=== PATIENT | female | born 1995 | race Hispanic/Latino ===

== ENCOUNTER 2017-09-29 08:53 | Inpatient (IN) | payer OTHER ==
--- OUTSIDE RECORDS SUMMARY | 2017-09-29 08:55 | XMS REPORT ---
:1995 Author Organization eClinicalWorks Care Team Providers Name Role Phone Rios Fink Provider Role Unavailable Allergies, Adverse Reactions, Alerts Substance Reaction Event Type N.K.D.A. Info Not Available Non Drug Allergy Problems Problem Type Condition Code Onset Dates Condition Status Problem Encounter for supervision of normal Z34.03 Active first in third trimester Problem Encounter for supervision of normal Z34.02 Active first in second trimester Problem Abnormality of vulva during O34.73 Active in third trimester Assessment Encounter for supervision of normal Z34.03 Active first in third trimester Assessment Abnormality of vulva during O34.73 Active in third trimester Medications Medication Code Code Instructions Start End Status Dosage System Date Date Valacyclovir HCl [facility] 32636608953 1 GM Orally August 31September Active 1 tablet twice a day 2017 Results No Known Results Summary Purpose eClinicalWorks Submission
--- OUTSIDE RECORDS SUMMARY | 2017-09-29 08:55 | XMS REPORT ---
:1995 Author Organization eClinicalWorks Care Team Providers Name Role Phone Rios Fink Provider Role Unavailable Allergies No Known Allergies Problems Problem Type Condition Code Onset Dates Condition Status Assessment Other viral diseases complicating O98.513 Active , third trimester Problem Other viral diseases complicating O98.513 Active , third trimester Problem Abnormality of vulva during O34.73 Active in third trimester Problem Herpesviral infection, unspecified B00.9 Active Assessment Encounter for supervision of normal Z34.03 Active first in third trimester Assessment Herpesviral infection, unspecified B00.9 Active Problem Encounter for supervision of normal Z34.03 Active first in third trimester Problem Encounter for supervision of normal Z34.02 Active first in second trimester Medications Medication Code Code Instructions Start End Status Dosage System Date Date Valacyclovir HCl [facility] 09492605430 500 MG Orally September 07October Active 1 tablet twice a day 2017 Valacyclovir HCl [place] 21499461668 1 GM Orally August 31September Active 1 tablet twice a day 2017 Results No Known Results Immunizations Vaccine Administration Date TDAP > 7 Years-Adacel September 07, 2017 Summary Purpose eClinicalWorks Submission
--- OUTSIDE RECORDS SUMMARY | 2017-09-29 08:55 | XMS REPORT ---
:1995 Author Organization e[employer]Works Care Team Providers Name Role Phone AleksRios Provider Role Unavailable Allergies No Known Allergies Problems Problem Type Condition Code Onset Dates Condition Status Assessment Other viral diseases complicating O98.513 Active , third trimester Assessment Encounter for supervision of normal Z34.03 Active first in third trimester Assessment Herpesviral infection, unspecified B00.9 Active Assessment Acute vaginitis N76.0 Active Assessment Other specified bacterial agents as B96.89 Active the cause of diseases classified elsewhere Problem Acute vaginitis N76.0 Active Problem Other viral diseases complicating O98.513 Active , third trimester Problem Other specified bacterial agents as B96.89 Active the cause of diseases classified elsewhere Problem Encounter for supervision of normal Z34.03 Active first in third trimester Problem Encounter for supervision of normal Z34.02 Active first in second trimester Problem Herpesviral infection, unspecified B00.9 Active Problem Abnormality of vulva during O34.73 Active in third trimester Medications Medication Code Code Instructions Start End Status Dosage System Date Date Valacyclovir HCl [facility] 19199740341 1 GM Orally August 31September Active 1 tablet twice a day 2017 Valacyclovir HCl ND 18265713019 500 MG Orally September 07October Active 1 tablet twice a day 2017 Flagyl [facility] 99945519265 500 MG Orally Active 1 tablet every 12 hours Results No Known Results Summary Purpose eClinicalWorks Submission
--- OUTSIDE RECORDS SUMMARY | 2017-09-29 08:55 | XMS REPORT ---
:1995 Author Organization eClinicalWorks Care Team Providers Name Role Phone Sofijuan jRios Provider Role Unavailable Allergies No Known Allergies [...] Start End Status Dosage System Date Date Flagyl [facility] 03536289552 500 MG Orally Active 1 tablet every 12 hours Valacyclovir HCl [place] 89120793079 1 GM Orally August 31September Active 1 tablet twice a day 2017 Valacyclovir HCl ND 76574163553 500 MG Orally September 07October Active 1 tablet twice a day 2017 Results No Known Results Summary Purpose eClinicalWorks Submission
--- OUTSIDE RECORDS SUMMARY | 2017-09-29 08:55 | XMS REPORT ---
:1995 Author Organization eClinicalWorks Care Team Providers Name Role Phone Jenniferyannickjuan jRios Provider Role Unavailable Allergies No Known [...] Status Dosage System Date Date Valacyclovir HCl [facility] 77553471954 1 GM Orally August 31September Active 1 tablet twice a day 2017 Valacyclovir HCl ND 29002769191 500 MG Orally September 07October Active 1 tablet twice a day 2017 Flagyl [facility] 49860471252 500 MG Orally Active 1 tablet every 12 hours Results No Known Results Summary Purpose eClinicalWorks Submission
--- OUTSIDE RECORDS SUMMARY | 2017-09-29 08:55 | XMS REPORT ---
:1995 Author Organization eClinicalWorks Care Team Providers Name Role Phone Rios Fink Provider Role Unavailable Allergies No Known Allergies Problems Problem Type Condition Code Onset Dates Condition Status Problem Encounter for supervision of normal Z34.02 Active first in second trimester Assessment Encounter for supervision of normal Z34.03 Active first in third trimester Problem Encounter for supervision of normal Z34.03 Active first in third trimester Medications No Known Medications Results No Known Results Summary Purpose eClinicalWorks Submission
[2017-09-29] MEDS ORDERED: hydrOXYzine HCl 25 MG TAB PO ONE (09:22)
[2017-09-29] MEDS ORDERED: hydrOXYzine HCl 25 MG TAB ONE (09:38)
[2017-09-29] MEDS ORDERED: PROMETHAZINE 25 MG/ML VIAL IV PRN ×2 (11:08)
[2017-09-29] MEDS ORDERED: Ringers Lactate 1,000 ML IV PRN (11:08)
[2017-09-29] MEDS ORDERED: BUTORPHANOL 1 MG/ML INJ IV PRN (11:08)
[2017-09-29 11:28] LABS: RPR Titer ND
[2017-09-29] MEDS ORDERED: PENICILLIN G POT 5 MU/100 ML BAG IV ONE (11:30)
[2017-09-29 11:32] LABS: Urine Appearance CLOUDY; Urine Bilirubin NEGATIVE (NEG); Urine Blood 3+ (NEG); Urine Color YELLOW; Urine Glucose NEGATIVE (NEG); Urine Protein NEGATIVE (NEG); Urine Urobilinogen 0.2 mg/dL (0.2-1.0)
[2017-09-29 11:35] LABS: Absolute Lymphocytes (CBC) 1.8 K/uL (0.7-4.9); Absolute Monocytes 0.6 K/uL (0.1-1.3); Absolute Neutrophil 5.3 K/uL (1.8-8.0); Basophils % 0.7 % (0-1.3); Eosinophils % 2.1 % (0-4.4); Hematocrit 35.8 % (36.0-45.0); Lymphocytes % 22.4 % (15.3-44.8); MCH 25.5 pg (27.0-35.0); MCV 78.1 fL (80-100); MPV 9.4 fL (7.6-11.3); Monocytes % 7.5 % (3.3-12.3); RBC Red Blood Cell Count 4.58 M/uL (3.86-4.86)
[2017-09-29 11:38] LABS: Urine Microscopic Reflex ORDER UMIC
[2017-09-29 11:44] LABS: Urine Bacteria 20-50 /HPF (<20); Urine Culture Reflex Order REFLEXED; Urine Mucus 2+ /HPF (NONE SEEN)
[2017-09-29] MEDS ORDERED: OXYTOCIN/LR 20 UNIT/1,000 ML BAG IV SCH (12:00)
[2017-09-29] MEDS ORDERED: Ringers Lactate 1,000 ML IV SCH (12:00)
[2017-09-29 12:10] VITALS: BMI 24.3
[2017-09-29 13:10] LABS: Anisocytosis 2+; Blood Morphology Comment NOTED (NOT SEEN); Platelet Estimate INCR; Urine White Blood Cell Casts OK
[2017-09-29] MEDS ORDERED: PENICILLIN 2.5 MU in NA CHLORIDE 0.9% 100 ML IV SCH (15:30)
[2017-09-29] MEDS ORDERED: CARBOPROST TROME 250 MCG/ML IM ONE (16:28)
[2017-09-29] MEDS ORDERED: METHYLERGONOVINE 0.2MG/ML AMP IM ONE (16:28)
[2017-09-29] MEDS ORDERED: LIDOCAINE 2% INJ, 20 mL 20 ML ONE (16:29)
[2017-09-29] MEDS ORDERED: BISACODYL 10 MG RECTAL SUPP RECT PRN (18:17)
[2017-09-29] MEDS ORDERED: METHYLERGONOVINE 0.2 MG TAB PO PRN (18:17)
[2017-09-29] MEDS ORDERED: ONDANSETRON 4 MG (ODT) TAB PO PRN (18:17)
[2017-09-29] MEDS ORDERED: ACETAMINOPHEN 500 MG TAB PO PRN (18:17)
[2017-09-29] MEDS ORDERED: IBUPROFEN 200 MG TAB PO PRN (18:17)
[2017-09-29] MEDS ORDERED: Oxycodone HCl/Acetaminophen 1 TAB TAB PO PRN (18:17)
[2017-09-29] MEDS ORDERED: DOCUSATE NA/SENNA CONC 1 TAB PO PRN (18:17)
[2017-09-29] MEDS: Oxycodone HCl/Acetaminophen 1 TAB TAB PO PRN (22:00)
--- NOTE | 2017-09-29 23:03 | P.OBGYNHP ---
Certification for Inpatient Patient admitted to: Inpatient With expected LOS: <2 Midnights Patient will require the following post-hospital care: None Practitioner: I am a practitioner with admitting privileges, knowledge of patient current condition, hospital course, and medical plan of care. Services: Services provided to patient in accordance with Admission requirements found in Title 42 Section 412.3 of the Code of Federal Regulations Patient History Date of Service: 09/29/17 Reason for admission: LABOR History of Present Illness: Patient is a 22 y/o at 39 weeks 3 days gestation who presents in labor. She was seen in the office yesterday and was found to be dilated a fingertip and today she is 2cm dilated and 70% effaced. She is cristal regularly. She denies vaginal bleeding. No leakage of fluid. 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 She has been on valtrex for suppression starting at 35 weeks. See record for further details Allergies No Known Allergies Allergy (Verified 09/05/17 04:39) Home Medications: Codeine/APAP [Tylenol W/Codeine #3 tab] 1 tab PO Q6HP PRN #25 tab 09/30/17 - Past Medical/Surgical History Diabetic: No - Social History Smoking Status: Never smoker Alcohol use: No CD- Drugs: No Caffeine use: Yes Place of Residence: Home Review of Systems 10-point ROS is otherwise unremarkable Physical Examination - Vital Signs Temperature: 98.3 F Blood Pressure: 127/81 Pulse: 100 Respirations: 16 - General General: Alert, Oriented x3, Moderate distress HEENT: Atraumatic Neck: Supple Respiratory: Normal air movement Cardiovascular: No edema, Normal pulses Breasts: Normal configuration, Normal contours, Symmetrical Integumentary: No rashes, No breakdown Neurological: Normal gait, Normal speech - Female Pelvic External genitalia: Normal Vagina: Normal, [place], Moist Cervix: Dilation (2 cm), Effacement (70%), station (-2) Uterus: Gravid Adnexa: Unable to evaluate - Obstetrics heart rate tracing: Category 2 Contractions: Frequency (Every 3-5 min) Amniotic membrane: AROM (Clear fluid) Laboratory Data (last 24 hrs) 09/29/17 10:58: WBC 7.9, Hgb 11.7 L, Hct 35.8 L, Plt Count 344 Assessment and Plan - Plan Patient is a 22 y/o at 39 weeks 3 days gestation who presents in labor. Rupture of membranes has been performed. Patient has been given penicillin since she is GBS positive. Patient was offered epidural for pain management however she declines at this time. Will begin Pitocin for labor augmentation. Continuous / maternal monitoring will be performed. Anticipate vaginal . Discharge Plan: Home Plan to discharge in: 48 Hours - Advance Directives Does patient have a Living Will: No Does patient have a Durable POA for Healthcare: No
--- NOTE | 2017-09-29 23:04 | P.OP ---
Date of Service: 09/29/17 Findings and Operative Technique Patient delivered a viable male in cephalic presentation on 09/29/17 at 07: 48 AM. There was nuchal cord x1 which was reduced manually. was delivered over a midline episiotomy. Nose and mouth were suctioned with a suction bulb. Cord was clamped and cut. Infant was placed on mother's abdomen for skin to skin bonding. Placenta was then subsequently delivered gentle traction and was noted to be intact. Attention was then turned to the episiotomy which was repaired with a 2 Vicryl in usual fashion. EBL was 300 cc. Infant's weight was found to be 7 lb 3 oz. Apgars were 9 and 9. Stage I of labor was 625 min. Stage II was 18 min. Both mom and baby are doing well.
[2017-09-29 23:06] LABS: RPR (Rapid Plasma Reagin) NON-REACT (NON-REACT)
[2017-09-30 05:02] LABS: Absolute Lymphocytes (CBC) 1.9 K/uL (0.7-4.9); Absolute Neutrophil 8.8 K/uL (1.8-8.0); Basophils % 0.5 % (0-1.3); Eosinophils % 0.4 % (0-4.4); Hematocrit 28.3 % (36.0-45.0); Lymphocytes % 15.8 % (15.3-44.8); MCH 25.3 pg (27.0-35.0); MCV 78.7 fL (80-100); Monocytes % 8.9 % (3.3-12.3); RBC Red Blood Cell Count 3.59 M/uL (3.86-4.86)
[2017-09-30] MEDS ORDERED: IBUPROFEN 400 MG TAB PO PRN (09:48)
[2017-09-30] MEDS ORDERED: PRENATAL VITAMIN PO ONE (12:57)
[2017-09-30] MEDS ORDERED: FERROUS SULFATE 325 MG TAB PO ONE (12:57)
[2017-09-30] MEDS: Oxycodone HCl/Acetaminophen 1 TAB TAB PO PRN (17:31)
[2017-09-30] MEDS ORDERED: FERROUS SULFATE 325 MG TAB PO SCH (21:00)
[2017-10-01] MEDS ORDERED: PRENATAL VITAMIN PO SCH (09:00)
[2017-10-01 18:21] LABS: HBsAG Nonreactive (Nonreactive)
[2017-10-14 11:27] VITALS: BP 127/81; TEMP 98.3
--- NOTE | 2017-10-14 14:39 | P.DS ---
Admission Date: 09/29/17 Discharge Date: 09/30/17 Disposition: ROUTINE DISCHARGE Discharge Condition: GOOD Reason for Admission: LABOR Brief History of Present Illness: Patient is a 22 y/o at 39 weeks 3 days gestation who presents in labor. She was seen in the office yesterday and was found to be dilated a fingertip and today she is 2cm dilated and 70% effaced. She is cristal regularly. She denies vaginal bleeding. No leakage of fluid. 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 She has been on valtrex for suppression starting at 35 weeks. See record for further details Hospital Course: Patient did well . She is anemic however denies any symptoms. She is ambulating well. Her pain is well managed. She is tolerating regular diet. She is voiding without difficulty. Vital Signs/Physical Exam: Temp Pulse Resp BP Pulse Ox 98.3 F 100 H 16 127/81 10/14/17 11:28 10/14/17 11:28 10/14/17 11:28 10/14/17 11:28 General: Alert, In no apparent distress, Oriented x3 HEENT: Atraumatic Neck: Supple Respiratory: Normal air movement Cardiovascular: No edema, Normal pulses Gastrointestinal: Normal bowel sounds, Soft and benign Integumentary: No rashes, No breakdown Neurological: Normal gait, Normal speech External genitalia: No edema Laboratory Data at Discharge: WBC 11.8 K/uL (4.3-10.9) H D 09/30/17 04:39 Hgb 9.1 g/dL (12.0-15.0) L D 09/30/17 04:39 Hct 28.3 % (36.0-45.0) L D 09/30/17 04:39 Plt Count 283 K/uL (152-406) 09/30/17 04:39 Home Medications: Codeine/APAP [Tylenol W/Codeine #3 tab] 1 tab PO Q6HP PRN #25 tab 09/30/17 New Medications: Codeine/APAP [Tylenol W/Codeine #3 tab] 1 tab PO Q6HP PRN #25 tab PRN Reason: Pain Diet: Regular Activity: No lifting more than 10 lbs Followup: Rios Fink, [ACTIVE - CAN ADMIT] - (Follow up care with Dr. Fink in 4- 6 weeks. [phone])
== END 2017-09-30 17:35 | disposition home or self-care (01) | DRG 774 ==
LOC: L&D 08:53 → 2ND-WC 10:27
PROVIDERS: ADMIT Student in an Organized Health Care Education/Training Program; ATTEND Student in an Organized Health Care Education/Training Program
PROC: 10907ZC Drainage of Amniotic Fluid, Therapeutic from Products of Conception, Via Natural or Artificial Opening (ICD-10-PCS; principal; 2017-09-29)
PROC: 10E0XZZ Delivery of Products of Conception, External Approach (ICD-10-PCS; 2017-09-29)
PROC: 0W8NXZZ Division of Female Perineum, External Approach (ICD-10-PCS; 2017-09-29)
DX: O69.81X0 Labor and delivery complicated by cord around neck, without compression, not applicable or unspecified (principal); O98.32 Other infections with a predominantly sexual mode of transmission complicating childbirth; A60.09 Herpesviral infection of other urogenital tract; O99.824 Streptococcus B carrier state complicating childbirth; Z3A.39 39 weeks gestation of pregnancy; Z37.0 Single live birth
CPT/HCPCS: 36415; 81003; 81015; 85025; 86592; 86901; 87086; 87088; 87340; 99218; J0595; J2210; J2550; J2590

== ENCOUNTER 2017-11-06 19:28 | Emergency (ER) | payer OTHER, SELFPAY ==
--- OUTSIDE RECORDS SUMMARY | 2017-11-06 19:30 | XMS REPORT ---
[...] Status Dosage System Date Date Valacyclovir HCl [facility] 52361921069 500 MG Orally September 07October Active 1 tablet twice a day 2017 Valacyclovir HCl ND 30282833796 1 GM Orally August 31September Active 1 tablet twice a day 2017 Results No Known Results Immunizations Vaccine Administration Date TDAP > 7 Years-Adacel September 07, 2017 Summary Purpose eClinicalWorks Submission
--- OUTSIDE RECORDS SUMMARY | 2017-11-06 19:30 | XMS REPORT ---
[...] Status Dosage System Date Date Valacyclovir HCl [facility] 03419044255 1 GM Orally August 31September Active 1 tablet twice a day 2017 Results No Known Results Summary Purpose eClinicalWorks Submission
--- OUTSIDE RECORDS SUMMARY | 2017-11-06 19:30 | XMS REPORT ---
[...] Status Dosage System Date Date Valacyclovir HCl [facility] 76749741255 1 GM Orally August 31September Active 1 tablet twice a day 2017 Valacyclovir HCl ND 76279947091 500 MG Orally September 07October Active 1 tablet twice a day 2017 Flagyl [facility] 2] 51727410663 500 MG Orally Active 1 tablet every 12 hours Results No Known Results Summary Purpose eClinicalWorks Submission
--- OUTSIDE RECORDS SUMMARY | 2017-11-06 19:30 | XMS REPORT ---
[...] End Status Dosage System Date Date Flagyl [facility] 99411541011 500 MG Orally Active 1 tablet every 12 hours Valacyclovir HCl [place] 07925976351 1 GM Orally August 31September Active 1 tablet twice a day 2017 Valacyclovir HCl ND 59817079070 500 MG Orally September 07October Active 1 tablet twice a day 2017 Results No Known Results Summary Purpose eClinicalWorks Submission
--- OUTSIDE RECORDS SUMMARY | 2017-11-06 19:30 | XMS REPORT ---
[...] Status Dosage System Date Date Valacyclovir HCl [facility] 87122601553 1 GM Orally August 31September Active 1 tablet twice a day 2017 Valacyclovir HCl ND 75153303220 500 MG Orally September 07October Active 1 tablet twice a day 2017 Flagyl [facility] 06259469103 500 MG Orally Active 1 tablet every 12 hours Results No Known Results Summary Purpose eClinicalWorks Submission
[2017-11-06] MEDS ORDERED: NA CHLORIDE 0.9% 1,000 ML ONE (19:52)
--- NOTE | 2017-11-06 20:21 | RAD REPORT ---
EXAM DESCRIPTION: CT - Head Brain Wo Cont - 11/06/2017 8:12 pm CLINICAL HISTORY: Syncope, fall, loss of consciousness2 COMPARISON: None. TECHNIQUE: Axial 5 mm thick images of the head were obtained without IV contrast. All CT scans are performed using dose optimization technique as appropriate and may include automated exposure control or mA/KV adjustment according to patient size. FINDINGS: No intracranial hemorrhage, mass, edema or shift of mid-line structures. No acute infarcti on changes seen. No abnormal extra-axial fluid collections. Ventricles are normal. Physiologic calcif ications are present. Mastoid air cells and visualized portions of the paranasal sinuses are clear. No acute bony findings. IMPRESSION: Negative non-contrast CT head examination.
[2017-11-06 20:22] LABS: Absolute Lymphocytes (CBC) 2.7 K/uL (0.7-4.9); Absolute Monocytes 0.5 K/uL (0.1-1.3); Absolute Neutrophil 4.8 K/uL (1.8-8.0); Basophils % 0.5 % (0-1.3); Eosinophils % 1.3 % (0-4.4); Hematocrit 40.6 % (36.0-45.0); Lymphocytes % 33.1 % (15.3-44.8); MCH 26.9 pg (27.0-35.0); MCV 81.2 fL (80-100); MPV 9.1 fL (7.6-11.3); Monocytes % 6.4 % (3.3-12.3)
[2017-11-06 20:39] LABS: BUN Blood Urea Nitrogen 14 mg/dL (7-18); Bicarbonate 26 mmol/L (21-32); Glucose Level 89 mg/dL (74-106); Potassium 3.6 mmol/L (3.5-5.1); Sodium Level 143 mmol/L (136-145)
[2017-11-06 20:52] LABS: Urine Blood 3+ (NEG); Urine Glucose NEGATIVE (NEG); Urine Protein 2+ (NEG); Urine pH 8.5 (5.0-7.0)
[2017-11-06 21:03] LABS: Urine Bacteria <20 /HPF (<20); Urine Culture Reflex Order NOT NEEDED; Urine Mucus HEAVY /HPF (NONE SEEN); Urine RBC TNTC /HPF (NONE SEEN)
--- NOTE | 2017-11-06 21:27 | ER ---
Nurse's Notes [facility] Name: Briseida Roman Age: 22 yrs Sex: Female : 1995 Arrival Date: 11/06/2017 Time: 19:30 Bed 25 Private MD: Diagnosis: Syncope and collapse Presentation: 11/06 20:06 Presenting complaint: Patient states: FAINTED FROM GETTING FROM BED. SHE REMEMBERS rv WALKING BUT THEN SHE FAINTED. Transition of care: patient was not received from another setting of care. Onset of symptoms was November 06, 2017 at 19:00. Risk Assessment: Do you want to hurt yourself or someone else? Patient reports no desire to harm self or others. Initial Sepsis Screen: Does the patient meet any 2 criteria? No. Patient's initial sepsis screen is negative. Does the patient have a suspected source of infection? No. Patient's initial sepsis screen is negative. Care prior to arrival: None. 20:06 Method Of Arrival: EMS rv 20:06 Acuity: BELEN 3 rv 20:08 Presenting complaint:. rv Triage Assessment: 20:11 General: Behavior is calm, cooperative. Pain: Denies pain. rv Historical: - Allergies: 20:30 No Known Allergies; rv - Home Meds: 20:30 None [Active]; rv - PMHx: 20:30 None; rv - PSHx: 20:30 None; rv - Immunization history:: Adult Immunizations up to date. - Ebola Screening: : Patient negative for fever greater than or equal to 101.5 degrees Fahrenheit, and additional compatible Ebola Virus Disease symptoms Patient denies exposure to infectious person Patient denies travel to an Ebola-affected area in the 21 days before illness onset. - Social history:: Smoking status: unknown. - Family history:: not pertinent. - Hospitalizations: : No recent hospitalization is reported. Screenin:10 Abuse screen: Denies threats or abuse. Denies injuries from another. Nutritional rv screening: No deficits noted. Tuberculosis screening: No symptoms or risk factors identified. Fall Risk None identified. Assessment: 20:06 General: Appears. rv 21:14 Reassessment: Patient appears in no apparent distress at this time. Patient is alert, rv oriented x 3, equal unlabored respirations, skin warm/dry/pink. PATIENT IS LYING ON BED. COMFORTABLE AND VITAL SIGNS ARE STABLE. Vital Signs: 20:09 BP 101 / 74; Pulse 97; Resp 16; Pulse Ox 99% on R/A; rv 20:30 Weight 53.07 kg; Height 5 ft. 3 in. (160.02 cm) (R); rv 21:13 BP 94 / 66; Pulse 90; Resp 19; Pulse Ox 100% on R/A; rv 20:30 Body Mass Index 20.73 (53.07 kg, 160.02 cm) rv ED Course: 19:30 Patient arrived in ED. rn 19:31 Mainor Miranda MD is Attending Physician. rn 20:08 Triage completed. rv 20:10 Arm band placed on left wrist. rv 20:11 Patient has correct armband on for positive identification. Placed in gown. Bed in low rv position. Call light in reach. Side rails up X 1. Adult w/ patient. monitor technician on. Pulse ox on. NIBP on. 20:12 CT Head Brain wo Cont In Process Unspecified. EDMS 20:13 CT completed. Patient moved to CT via wheelchair. Patient moved back from CT. cw1 21:52 No provider procedures requiring assistance completed. IV discontinued, bleeding rv controlled, No redness/swelling at site. Pressure dressing applied. Administered Medications: 20:00 Drug: NS 0.9% 1000 ml Route: IV; Rate: 1000 ml; Site: right antecubital; rv Outcome: 21:27 Discharge ordered by . rn 21:53 Discharged to home ambulatory. rv 21:53 Condition: good 21:53 Discharge instructions given to patient, family, Instructed on discharge instructions, follow up and referral plans. 21:53 Patient left the ED. rv Signatures: Dispatcher [employer] EDMS Mainor Miranda MD MD rn Woodley, Crystal cw1 Leobardo Casey RN RN rv
--- NOTE | 2017-11-06 21:27 | EDPHYS ---
Physician Documentation [facility] Name: Briseida Roman Age: 22 yrs Sex: Female : 1995 Arrival Date: 11/06/2017 Time: 19:30 Bed 25 Private MD: ED Physician Mainor Miranda HPI: 11/06 21:23 This 22 yrs old Female presents to ER via EMS with complaints of syncope. rn 21:23 The patient has experienced syncope, collapsed. Onset: The symptoms/episode rn began/occurred just prior to arrival. Duration: This was a single episode. Current symptoms: Currently, the patient is not experiencing any symptoms. The patient has not experienced similar symptoms in the past. Reports vaginal delivery 1 month ago, has been having mild vaginal bleeding since then, saw OB yesterday, given control pills, feels asymptomatic now. No chest pain/sob/abd pain/vomiting/diarrhea. Got up, felt lightheaded, then passed out. No family hx of sudden cardiac or early cardiac problems. . Historical: - Allergies: 20:30 No Known Allergies; rv - Home Meds: 20:30 None [Active]; rv - PMHx: 20:30 None; rv - PSHx: 20:30 None; rv - Immunization history:: Adult Immunizations up to date. - Ebola Screening: : Patient negative for fever greater than or equal to 101.5 degrees Fahrenheit, and additional compatible Ebola Virus Disease symptoms Patient denies exposure to infectious person Patient denies travel to an Ebola-affected area in the 21 days before illness onset. - Social history:: Smoking status: unknown. - Family history:: not pertinent. - Hospitalizations: : No recent hospitalization is reported. ROS: 21:23 Constitutional: Negative for fever, chills, and weight loss, Eyes: Negative for injury, rn pain, redness, and discharge, Cardiovascular: Negative for chest pain, palpitations, and edema, Respiratory: Negative for shortness of breath, cough, wheezing, and pleuritic chest pain, Abdomen/GI: Negative for abdominal pain, nausea, vomiting, diarrhea, and constipation, : + vaginal bleeding MS/Extremity: Negative for injury and deformity, Skin: Negative for injury, rash, and discoloration, Neuro: Negative for headache, weakness, numbness, tingling, and seizure. Exam: 21:23 Constitutional: This is a well developed, well nourished patient who is awake, alert, rn and in no acute distress. Head/Face: Normocephalic, atraumatic. Eyes: Pupils equal round and reactive to light, extra-ocular motions intact. Lids and lashes normal. Conjunctiva and sclera are non-icteric and not injected. Cornea within normal limits. Periorbital areas with no swelling, redness, or edema. Neck: Trachea midline, no thyromegaly or masses palpated, and no cervical lymphadenopathy. Supple, full range of motion without nuchal rigidity, or vertebral point tenderness. No Meningismus. Cardiovascular: Regular rate and rhythm with a normal S1 and S2. No gallops, murmurs, or rubs. Normal PMI, no JVD. No pulse deficits. Respiratory: Lungs have equal breath sounds bilaterally, clear to auscultation and percussion. No rales, rhonchi or wheezes noted. No increased work of breathing, no retractions or nasal flaring. Abdomen/GI: Soft, non-tender, with normal bowel sounds. No distension or tympany. No guarding or rebound. No evidence of tenderness throughout. Skin: Warm, dry with normal turgor. Normal color with no rashes, no lesions, and no evidence of cellulitis. MS/ Extremity: Pulses equal, no cyanosis. Neurovascular intact. Full, normal range of motion. Equal circumference. Neuro: Awake and alert, GCS 15, oriented to person, place, time, and situation. Cranial nerves II-XII grossly intact. Motor strength 5/5 in all extremities. Sensory grossly intact. Cerebellar exam normal. Normal gait. Vital Signs: 20:09 BP 101 / 74; Pulse 97; Resp 16; Pulse Ox 99% on R/A; rv 20:30 Weight 53.07 kg; Height 5 ft. 3 in. (160.02 cm) (R); rv 21:13 BP 94 / 66; Pulse 90; Resp 19; Pulse Ox 100% on R/A; rv 20:30 Body Mass Index 20.73 (53.07 kg, 160.02 cm) rv MDM: 19:31 Patient medically screened. rn 21:23 Differential Diagnosis: idiopathic syncope, vasovagal episode, volume depletion, rn anemia. Data reviewed: vital signs, nurses notes, lab test result(s), EKG, radiologic studies, CT scan, and as a result, I will discharge patient. Counseling: I had a detailed discussion with the patient and/or guardian regarding: the historical points, exam findings, and any diagnostic results supporting the discharge/admit diagnosis, lab results, radiology results, the need for outpatient follow up, to return to the emergency department if symptoms worsen or persist or if there are any questions or concerns that arise at home. Special discussion: I discussed with the patient/guardian in detail that at this point there is no indication for admission to the hospital. It is understood, however, that if the symptoms persist or worsen the patient needs to return immediately for re-evaluation. 11/06 19:31 Order name: Urine Microscopic Only; Complete Time: 21:11/06 19:31 Order name: Basic Metabolic Panel; Complete Time: 20:11/06 19:31 Order name: CBC with Diff; Complete Time: 21:11/06 19:31 Order name: Magnesium; Complete Time: 20:11/06 19:31 Order name: Troponin (emerg Dept Use Only); Complete Time: 20:11/06 20:09 Order name: Urine Dipstick--Ancillary (enter results); Complete Time: 21: 11/06 19:31 Order name: Urine Test (obtain specimen); Complete Time: 20:11/06 19:31 Order name: CT Head Brain wo Cont; Complete Time: 20:42 11/06 19:31 Order name: EKG; Complete Time: 19:32 11/06 19:31 Order name: Cardiac monitoring; Complete Time: :11/06 19:31 Order name: EKG - Nurse/Tech; Complete Time: 21:11/06 19:31 Order name: IV Saline Lock; Complete Time: :11/06 20:09 Order name: Urine --Ancillary (enter results); Complete Time: 21: 11/06 19:31 Order name: Labs collected and sent; Complete Time: :11/06 19:31 Order name: NPO; Complete Time: 21:11/06 19:31 Order name: O2 Per Protocol; Complete Time: 20:11/06 19:31 Order name: O2 Sat Monitoring; Complete Time: 20: 11/06 19:31 Order name: Urine Dipstick-Ancillary (obtain specimen); Complete Time: 20:05 rn Administered Medications: 20:00 Drug: NS 0.9% 1000 ml Route: IV; Rate: 1000 ml; Site: right antecubital; rv Disposition: 11/06/17 21:27 Discharged to Home. Impression: Syncope and collapse. - Condition is Stable. - Discharge Instructions: Syncope. - Medication Reconciliation Form, Thank You Letter, Antibiotic Education, Prescription Opioid Use form. - Follow up: Private Physician; When: As needed; Reason: Recheck today's complaints, Re-evaluation by your physician. - Problem is new. - Symptoms have improved. Signatures: Dispatcher [employer] EDMS Mainor Miranda MD MD rn Vicente, Ronaldo, RN RN rv Corrections: (The following items were deleted from the chart) 21:53 21:27 11/06/2017 21:27 Discharged to Home. Impression: Syncope and collapse. Condition rv is Stable. Forms are Medication Reconciliation Form, Thank You Letter, Antibiotic Education, Prescription Opioid Use. Follow up: Private Physician; When: As needed; Reason: Recheck today's complaints, Re-evaluation by your physician. Problem is new. Symptoms have improved. rn
[2017-11-06 21:57] VITALS: BP 94/66; O2SAT 100
--- NOTE | 2017-11-07 09:30 | EKG ---
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
== END 2017-11-06 21:53 | disposition home or self-care (01) ==
LOC: ER 19:28
DX: R55 Syncope and collapse (principal)
CPT/HCPCS: 36415; 70450; 80048; 81003; 81015; 81025; 83735; 84484; 85025; 93005; 99285; J7030

== ENCOUNTER 2020-07-05 07:29 | Emergency (ER) | payer OTHER, SELFPAY ==
--- OUTSIDE RECORDS SUMMARY | 2020-07-05 07:32 | XMS REPORT | Continuity of Care Document ---
:1995 Author Organization [facility] t Address [address] [place] [address] Care Team Providers Name Role Phone Lab, Fam Pob I Attending Clinician Unavailable Doctor Unassigned, Name Attending Clinician Unavailable Problems Condition Condition Condition Status Onset Resolution Last Treating Co mments Source Name Details Category Date Date Treatment Clinician Date Encounter Encounter Problem Active [facility] - supervisio supervisio Me moria n of n of l normal normal Outpati first first ent Clin ics in second in second trimester trimester Encounter Encounter Problem [facility] - supervisio supervisio Me moria n of n of l normal normal Outpati first first ent Clin ics in third in third trimester trimester Abnormalit Abnormalit Problem Active [facility] y of vulva y of vulva Phoebe kes - during during Memoria l in third in third Outpat i trimester trimester ent Clinics Other Other Problem Active [facility] viral viral [facility]ukes - diseases diseases Memori a complicati complicati l ng ng Outpati , , en t third third Clinics trimester trimester Herpesvira Herpesvira Problem Active [facility] - infection, infection, Me moria unspecifie [facility] Acute Acute Problem Active [facility] vaginitis vaginitis Luke s - Memoria l Outpati ent Clinics Other Other Problem Active [facility] specified specified Luke s - bacterial bacterial Miguel juan carlos agents as agents as l the cause the cause Outp ati of of ent diseases diseases Clinic s classified classified elsewhere elsewhere Encounter Encounter Problem Active [facility] - initial initial Memoria prescripti prescripti l on of on of Outpati contracept contracept en t bill pills bill pills Clin ics Encounter Encounter Problem Active [facility] - routine routine Memoria l follow-up follow-up Outp ati ent Clinics Allergies, Adverse Reactions, Alerts This patient has no known allergies or adverse reactions. Medications Ordered Filled Start Stop Current Ordering Indication Dosage Frequency Signature Comments Components Source Medication Medication Date Date Medication? Clinician (SIG) Name Name Aneesh Melendrez 2019- No Rios [address] [facility] 11-11 [facility]ek[facility] - 00:00: 00:00 Memoria 00 :00 l [facility] Valacyclovi Valacyclovi 2018- No Rios [address] [facility] r HCl r HCl 09-07 Rekhi [facility] - 00:00: 00:00 Memoria 00 :00 l [facility] Flagyl Flagyl Yes Rios [address] Rekhi [facility] - Memoria l [facility] Immunizations Ordered Filled Immunization Date Status Comments Sourc e Immunization Name Name TDAP > 7 TDAP > 7 2017-09-[address] [facility] - Years-Adacel Years-Adacel 00:00:00 [facility] Procedures This patient has no known procedures. Encounters Start End Encounter Admission Attending Care Care Encounter Source Date/Time Date/Time Type Type Clinicians Facility Department ID 2020-04-23 2020-04-23 Laboratory Lab, [facility] [id number] 07:58:12 08:18:12 Only Fam Pob I Health [id number] [place] [id number] Professio [phone] nal [address] 2020-02-08 2020-02-08 Laboratory Lab, [facility] [id number] 08:39:35 08:59:35 Only Fam Pob I Health [id number] [place] [id number] Professio [phone] nal 044 [address] 2019-11-13 2019-11-13 Laboratory Lab, [facility] [id number] 14:10:25 14:30:25 Only Fam Pob I Health [id number] [place] [id number] [place] [phone] nal 044 [address] 2019-11-13 2019-11-13 Letter Doctor AZUL [id number] 00:00:00 00:00:00 (Out) Unassigned, ELMO [id number] [place] [facility] [phone] [id number] 2017-11-08 2017-11-08 [facility] [id number] [address] 16:11:00 16:11:00 [facility] 2017-11-05 2017-11-05 [facility] [id number] 11:30:00 11:30:00 [facility] 2017-09-28 2017-09-28 [facility] [id number] 11:00:00 11:00:00 [facility] 2017-09-21 2017-09-21 [facility] [id number] 10:15:00 10:15:00 [facility] 2017-09-14 2017-09-14 [facility] [id number] 10:30:00 10:30:00 [facility] Miguel juan carlos [facility] 2017-09-07 2017-09-07 [facility] [id number] 10:30:00 10:30:00 [facility] 2017-08-31 2017-08-31 [facility] [id number] 09:30:00 09:30:00 [facility] 2017-08-12 2017-08-12 Outpatient Denae David [id number] [facility] 10:15:00 10:15:00 [facility] Results This patient has no known results.
[2020-07-05 08:38] LABS: Absolute Lymphocytes (CBC) 1.8 K/uL (0.7-4.9); Basophils % 0.7 % (0-1.3); Hematocrit 40.6 % (36.0-45.0); Lymphocytes % 26.3 % (15.3-44.8); MPV 8.8 fL (7.6-11.3); RBC Red Blood Cell Count 4.75 M/uL (3.86-4.86)
[2020-07-05 09:18] LABS: Urine Blood NEGATIVE (NEG); Urine Glucose NEGATIVE (NEG); Urine Protein NEGATIVE (NEG); Urine pH 7.5 (5.0-7.0)
[2020-07-05 09:19] LABS: Urine Bacteria 20-50 /HPF (<20); Urine RBC <5 /HPF (NONE SEEN)
--- NOTE | 2020-07-05 10:52 | EDPHYS ---
Physician Documentation [facility] Name: Briseida Roman Age: 25 yrs Sex: Female : 1995 Arrival Date: 07/05/2020 Time: 07:32 Bed 13 Private MD: ED Physician Jay Dickerson HPI: 07/05 08:12 This 25 yrs old Female presents to ER via Ambulatory with complaints of tw4 Abdominal Pain, 5wks . 08:12 The patient presents with abdominal pain in the left upper quadrant, in the left lower tw4 quadrant. Onset: The symptoms/episode began/occurred yesterday. The symptoms do not radiate. Associated signs and symptoms: none. The symptoms are described as sharp. Modifying factors: The symptoms are alleviated by nothing, the symptoms are aggravated by nothing. Severity of pain: At its worst the pain was mild in the emergency department the pain is unchanged. The patient has not experienced similar symptoms in the past. 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 - Social history:: Smoking status: Patient denies any tobacco usage or history of. ROS: 08:12 Constitutional: Negative for fever, chills, and weight loss, Eyes: Negative for injury, tw4 pain, redness, and discharge, Cardiovascular: Negative for chest pain, palpitations, and edema, Respiratory: Negative for shortness of breath, cough, wheezing, and pleuritic chest pain, Back: Negative for injury and pain, MS/Extremity: Negative for injury and deformity, Skin: Negative for injury, rash, and discoloration, Neuro: Negative for headache, weakness, numbness, tingling, and seizure. 08:12 Abdomen/GI: Positive for abdominal pain. Exam: 08:12 Constitutional: This is a well developed, well nourished patient who is awake, alert, tw4 and in no acute distress. Head/Face: Normocephalic, atraumatic. Chest/axilla: Normal chest wall appearance and motion. Nontender with no deformity. No lesions are appreciated. Cardiovascular: Regular rate and rhythm with a normal S1 and S2. No gallops, murmurs, or rubs. Normal PMI, no JVD. No pulse deficits. Respiratory: Lungs have equal breath sounds bilaterally, clear to auscultation and percussion. No rales, rhonchi or wheezes noted. No increased work of breathing, no retractions or nasal flaring. Back: No spinal tenderness. No costovertebral tenderness. Full range of motion. Skin: Warm, dry with normal turgor. Normal color with no rashes, no lesions, and no evidence of cellulitis. MS/ Extremity: Pulses equal, no cyanosis. Neurovascular intact. Full, normal range of motion. Neuro: Awake and alert, GCS 15, oriented to person, place, time, and situation. Cranial nerves II-XII grossly intact. Motor strength 5/5 in all extremities. Sensory grossly intact. Cerebellar exam normal. Normal gait. Vital Signs: 07:40 BP 123 / 82; Pulse 93; Resp 14; Temp 98.4(TE); Pulse Ox 99% on R/A; Weight 52.16 kg; ss Height 5 ft. 5 in. (165.10 cm); Pain 3/10; 11:13 BP 119 / 71; Pulse 89; Resp 16; Pulse Ox 99% ; ll1 07:40 Body Mass Index 19.14 (52.16 kg, 165.10 cm) ss MDM: 08:12 Data reviewed: vital signs, nurses notes. Data reviewed: lab test result(s), CBC, tw4 electrolytes, urinalysis, radiologic studies. Data interpreted: Pulse oximetry: Interpretation: normal. 09:01 Patient medically screened. [facility] 07/05 07:36 Order name: Basic Metabolic Panel [facility] 07/05 07:36 Order name: CBC with Diff; Complete Time: 09:13 [facility] 07/05 10:09 Interpretation: Normal except: MCV 85.5. [facility] 07/05 07:36 Order name: Hepatic Function [facility] 07/05 07:36 Order name: Lipase [facility] 07/05 07:36 Order name: HCG-Quantitative [facility] 07/05 08:19 Order name: Urine Dipstick--Ancillary (enter results) 07/05 07:36 Order name: IV Saline Lock; Complete Time: 08:15 [facility] 07/05 07:36 Order name: Labs collected and sent; Complete Time: 08:15 [facility] 07/05 07:36 Order name: Urine Dipstick-Ancillary (obtain specimen); Complete Time: 08:15 [facility] 07/05 08:19 Order name: Urine --Ancillary (enter results) 07/05 08:20 Order name: Urine Dipstick-Ancillary; Complete Time: 10:08 [facility] 07/05 08:20 Order name: Urine --Ancillary; Complete Time: 10:08 [facility] 07/05 10:08 Interpretation: Within normal limits: URINE PREG POS. [facility] 07/05 08:28 Order name: Urine Microscopic Only; Complete Time: 10:08 [facility] 07/05 10:08 Interpretation: Normal except: SQEPI 5-10; UBACT 20-50. [facility] 07/05 09:21 Order name: Urine Culture [facility] 07/05 07:36 Order name: Urine Test (obtain specimen); Complete Time: 08:15 [facility] Administered Medications: No medications were administered Disposition: 07/05/20 10:51 Discharged to Home. Impression: Urinary tract infection, site not specified. - Condition is Stable. - Discharge Instructions: Urinary Tract Infection, Adult, and Urinary Tract Infection. - Prescriptions for Macrobid 100 mg Oral Capsule - take 1 capsule by ORAL route every 12 hours for 10 days; 20 capsule. - Medication Reconciliation Form, Thank You Letter, Antibiotic Education, Prescription Opioid Use, Work release form form. - Follow up: Private Physician; When: Upon discharge from the Emergency Department; Reason: Recheck today's complaints, Continuance of care, Re-evaluation by your physician. - Problem is new. - Symptoms have improved. Signatures: Dispatcher [employer] [facility] Dottie Nobles RN RN ss Jay Dickerson MD MD tw4 Peter Ribera RN RN ll1 Corrections: (The following items were deleted from the chart) 11:14 10:51 07/05/2020 10:51 Discharged to Home. Impression: Urinary tract infection, site ll1 not specified. Condition is Stable. Forms are Medication Reconciliation Form, Thank You Letter, Antibiotic Education, Prescription Opioid Use. Follow up: Private Physician; When: Upon discharge from the Emergency Department; Reason: Recheck today's complaints, Continuance of care, Re-evaluation by your physician. Problem is new. Symptoms have improved. tw4
--- NOTE | 2020-07-05 10:52 | ER ---
Nurse's Notes [facility] Name: Briseida Roman Age: 25 yrs Sex: Female : 1995 Arrival Date: 07/05/2020 Time: 07:32 Bed 13 Private MD: Diagnosis: Urinary tract infection, site not specified Presentation: 07/05 07:42 Chief complaint: Patient states: "Yesterday at work around 2 I got super dizzy. I drank ss some water and everything was fine. Since last night I have this really sharp pain on the L side that comes and goes." Pt reports she is 5 weeks . Coronavirus screen: Client denies travel out of the [place] in the last 14 days. Ebola Screen: Patient denies exposure to infectious person. Patient denies travel to an Ebola-affected area in the 21 days before illness onset. Initial Sepsis Screen: Does the patient meet any 2 criteria? No. Patient's initial sepsis screen is negative. Does the patient have a suspected source of infection? No. Patient's initial sepsis screen is negative. Risk Assessment: Do you want to hurt yourself or someone else? Patient reports no desire to harm self or others. Onset of symptoms was July 04, 2020. 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 - Social history:: Smoking status: Patient denies any tobacco usage or history of. Screenin:44 Abuse screen: Denies threats or abuse. Denies injuries from another. Nutritional ss screening: No deficits noted. Tuberculosis screening: Never had TB. Fall Risk None identified. Assessment: 07:44 General: Appears in no apparent distress. comfortable, Behavior is calm, cooperative. ss Pain: Complains of pain in left lower quadrant Pain currently is 3 out of 10 on a pain scale. at worst was 10 out of 10 on a pain scale. Quality of pain is described as sharp, Pain began yesterday afternoon Is intermittent, Aggravated by increased activity, repositioning. Neuro: Level of Consciousness is awake, alert, obeys commands, Oriented to person, place, time, situation, Field Assistant are equal bilaterally Speech is normal, Facial symmetry appears normal. Cardiovascular: Denies nausea, palpitations, shortness of breath, Capillary refill < 3 seconds is brisk in bilateral fingers Patient's skin is warm and dry. Chest pain is denied. Respiratory: Airway is patent Respiratory effort is even, unlabored, Respiratory pattern is regular, symmetrical. Respiratory: Denies cough, labored breathing. GI: Bowel sounds present X 4 quads. Abd is soft X 4 quads Reports 1 episode of diarrhea this AM. Patient currently denies nausea, vomiting. : Denies burning with urination, discharge, inability to void, urinary frequency, urgency, vaginal bleeding. EENT: Oral mucosa is moist. Derm: Skin is intact, is healthy with good turgor, Skin is dry, Skin is pink, warm \\T\\ dry. normal. Musculoskeletal: Circulation, motion, and sensation intact. Range of motion: intact in all extremities, Swelling absent. 09:45 Reassessment: No changes from previously documented assessment. Patient and/or family ll1 updated on plan of care and expected duration. Pain level reassessed. 10:45 Reassessment: No changes from previously documented assessment. Patient and/or family ll1 updated on plan of care and expected duration. Pain level reassessed. Vital Signs: 07:40 BP 123 / 82; Pulse 93; Resp 14; Temp 98.4(TE); Pulse Ox 99% on R/A; Weight 52.16 kg; ss Height 5 ft. 5 in. (165.10 cm); Pain 3/10; 11:13 BP 119 / 71; Pulse 89; Resp 16; Pulse Ox 99% ; ll1 07:40 Body Mass Index 19.14 (52.16 kg, 165.10 cm) ED Course: 07:32 Patient arrived in ED. mr 07:35 Jay Dickerson MD is Attending Physician. tw4 07:40 Arm band placed on left wrist. ss 07:44 Triage completed. ss 07:44 Patient has correct armband on for positive identification. ss 07:47 Dottie Nobles, ISELA is Primary Nurse. ss 08:14 Inserted saline lock: 22 gauge in right antecubital area, using aseptic technique. ss Blood collected. Patient maintains SpO2 saturation greater than 95% on room air. 11:12 No provider procedures requiring assistance completed. IV discontinued, intact, ll1 bleeding controlled, No redness/swelling at site. Pressure dressing applied. Administered Medications: No medications were administered Outcome: 10:51 Discharge ordered by . tw4 11:13 Discharged to home ambulatory. ll1 11:13 Condition: stable 11:13 Discharge instructions given to patient, Instructed on discharge instructions, follow up and referral plans. medication usage, Demonstrated understanding of instructions, follow-up care, medications, Prescriptions given X 1. 11:14 Patient left the ED. ll1 Signatures: Wilma Trotter mr Dottie Nobles, RN RN ss Jay Dickerson MD MD tw4 Peter Ribera RN RN ll1
[2020-07-05 11:21] VITALS: TEMP 98.4; O2SAT 99
[2020-07-05 11:22] VITALS: BP 119/71
[2020-07-05 12:30] LABS: ALT/SGPT 49 U/L (12-78); AST/SGOT 15 U/L (15-37); Albumin 4.2 g/dL (3.4-5.0); Alkaline Phosphatase 83 U/L (45-117); BUN Blood Urea Nitrogen 7 mg/dL (7-18); Bicarbonate 24 mmol/L (21-32); Bilirubin Direct 0.1 mg/dL (0-0.2); Bilirubin Total 0.4 mg/dL (0.2-1.0); Glucose Level 88 mg/dL (74-106); HCG, Quantitative 9743 mIU/mL (1-3); Lipase 117 U/L (73-393); Potassium 3.8 mmol/L (3.5-5.1); Protein, Total 8.6 g/dL (6.4-8.2); Sodium Level 140 mmol/L (136-145)
== END 2020-07-05 11:14 | disposition home or self-care (01) ==
LOC: ER 07:29
DX: O23.41 Unspecified infection of urinary tract in pregnancy, first trimester (principal); Z3A.01 Less than 8 weeks gestation of pregnancy
CPT/HCPCS: 36415; 80048; 80076; 81003; 81015; 81025; 83690; 84702; 85025; 87086; 87088; 99284

== ENCOUNTER 2021-02-20 12:50 | Inpatient (IN) | payer OTHER ==
[2021-02-20] MEDS ORDERED: CARBOPROST TROME 250 MCG/ML IM PRN (15:31)
[2021-02-20] MEDS ORDERED: METHYLERGONOVINE 0.2MG/ML AMP IM PRN (15:31)
[2021-02-20] MEDS ORDERED: Ringers Lactate 1,000 ML IV PRN (15:31)
[2021-02-20] MEDS ORDERED: BUTORPHANOL 1 MG/ML INJ IV PRN (15:31)
[2021-02-20] MEDS ORDERED: PROMETHAZINE INJ 25 MG/ML AMP IM PRN (15:31)
[2021-02-20] MEDS ORDERED: LIDOCAINE 1% MPF 30 ML VIAL SQ ONE (15:38)
[2021-02-20] MEDS ORDERED: Ringers Lactate 1,000 ML IV SCH (16:00)
[2021-02-20] MEDS ORDERED: OXYTOCIN/LR 20 UNIT/1,000 ML BAG IV SCH ×2 (16:00→19:00)
[2021-02-20] MEDS ORDERED: OXYTOCIN/LR 1,000 ML IV SCH (16:00)
[2021-02-20 16:50] LABS: Absolute Lymphocytes (CBC) 1.5 K/uL (0.7-4.9); Basophils % 0.7 % (0-1.3); Lymphocytes % 14.1 % (15.3-44.8); MPV 9.2 fL (7.6-11.3); RBC Red Blood Cell Count 4.14 M/uL (3.86-4.86)
[2021-02-20 17:07] VITALS: BMI 25.0
[2021-02-20 17:24] LABS: Urine Appearance CLEAR (Clear); Urine Bilirubin NEGATIVE (Negative); Urine Blood 1+ (Negative); Urine Color YELLOW (Yellow); Urine Glucose NEGATIVE (Negative); Urine Protein NEGATIVE (Negative); Urine Specific Gravity 1.015 (1.005-1.030); Urine Urobilinogen 0.2 mg/dL (0.2-1.0)
[2021-02-20 17:43] LABS: Urine Microscopic Reflex ORDER UMIC
[2021-02-20] MEDS ORDERED: Oxycodone HCl/Acetaminophen 1 TAB TAB PO PRN (18:24)
[2021-02-20] MEDS ORDERED: IBUPROFEN 200 MG TAB PO PRN (18:24)
[2021-02-20] MEDS ORDERED: DIPHENHYDRAMINE 25 MG TAB/CAP PO PRN (18:24)
[2021-02-20] MEDS ORDERED: DOCUSATE NA/SENNA CONC 1 TAB PO PRN (18:24)
[2021-02-20] MEDS ORDERED: BISACODYL 10 MG RECTAL SUPP PR PRN (18:24)
[2021-02-20] MEDS ORDERED: ACETAMINOPHEN 500 MG TAB PO PRN (18:24)
[2021-02-20 18:30] LABS: Urine RBC <5 /HPF (NONE SEEN)
[2021-02-20 18:31] LABS: Urine Bacteria 20-50 /HPF (<20)
[2021-02-20] MEDS: Oxycodone HCl/Acetaminophen 1 TAB TAB PO PRN (19:14)
--- NOTE | 2021-02-20 22:24 | PREOPHP ---
Date of Admission: 02/20/2021 History Of Present Illness: A 25-year-old 2, para 1, at 38 weeks gestation, history of herpe s, herpes-free interval. The patient has been abstaining from intercourse and has been on acyclovir since 35 weeks. Thought she had ruptured her membranes, but is negative Nitrazine in my office, ashley olvera Nitrazine here at the hospital, but during the period of observation, her contractions have beco me regular and she has made cervical change. She is now 3.5 cm, 70% effaced, vertex, -1 station, wel l applied. Rupture of membranes. The patient is Rh positive, immune to rubella. Negative strep, ne gative COVID as far as we know. She is trying natural childbirth. She may request IV analgesics, bu t wants to avoid epidural, which she did successfully with the first delivery. Family History: Noncontributory. Past Medical History: No serious medical illnesses. Past Surgical History: No surgery. Allergies: NO ALLERGIES. Medications: No medicines prior to admission other than vitamins and iron. Social History: Does not smoke. Physical Examination: HEENT: Clear. Pupils equal, round, reactive to light and accommodation. Conjunctivae are well perf used. No oral, lingual, or buccal lesions. Chest and Lungs: Clear. Heart: Without murmurs, thrills, heaves, or rubs. Breasts: Without masses on previous visits. Abdomen: Term size baby, is vertex. Extremities: Clear. Assessment And Plan: We have admitted the patient, was started on augmentation and anticipate delive ry sometime later this evening. Full labor talk given. CHELLE/SEJAL Voice ID: [id number]
--- NOTE | 2021-02-21 04:36 | DN ---
Surgeon: Jordan Chamberlain MD Briseida Roman, a 25-year-old, 2, para 1, 38 weeks' gestation, came in, observed for rupture of membranes. No rupture of membranes, but then was observed to be in early labor, [place] ed from 2.5 to 3.5, at which time she was admitted. Rupture of membranes was performed, 60% to 70% e ffaced at that time, clear fluid. During the labor, received Stadol 1 mg IV, Phenergan 25 mg IM. We nt rapidly to complete. Spontaneous vaginal delivery of a 6-pound 11-ounce male infant, Apgars 9 and 9. First-degree episiotomy became a second-degree midline laceration, repaired with 2-0 chromic. D uncan delivery of the placenta. Uterus mildly hypotonic. 0.2 mg of Methergine IM, IV drip, Pitocin, and massage. Estimated blood loss 350 cc. Uterus contracted down well. The patient tolerated all procedures. Rh positive. Immune to Rubella. Negative strep. Negative COVID. Final Diagnoses: Term intrauterine , 38 weeks, spontaneous labor, vaginal delivery. Mild u terine hypotonus. NBC/MODL Voice ID: [id number] Report ID: [id number]
[2021-02-21] MEDS: Oxycodone HCl/Acetaminophen 1 TAB TAB PO PRN ×2 (07:37→14:26)
[2021-02-21 15:51] VITALS: BP 104/71; TEMP 98.7
[2021-02-21] MEDS ORDERED: Tdap (Diph,Pertuss(Acell),Tet Vac) 0.5 ML SYR IMVAC ONE (16:57)
[2021-02-21] MEDS ORDERED: IBUPROFEN 600 MG TAB PO PRN (17:00)
[2021-02-21 22:00] LABS: RPR (Rapid Plasma Reagin) NON-REACT (NON-REACT)
--- NOTE | 2021-02-24 13:04 | DS ---
Date of Discharge: 02/21/2021 25-year-old 2, para 1, at 38 weeks gestation delivered a 6 pounds 11 ounces male , Apga rs 9 and 9. Local infiltration for repair of very small second-degree laceration. Schultze delivery of the placenta. Mild uterine hypertonus. 0.2 mg of Methergine and IV drip Pitocin. Estimated blo od loss 350, possibly 400 cc. Rh positive. Immune to rubella. Negative strep. Negative COVID. Po stpartum afebrile, ambulating, voiding. Lochia is normal. Her pulse is slightly elevated. We will get an H and H this morning to make sure the hematocrit has not changed significantly. She came in w ith a low hematocrit of 32. We will see what it is this morning. Full instructions given . She is to return to my office in 6 weeks for followup to report any temperature elevation of 100 d egrees or greater, severe pain, heavy bleeding, or any other type abnormalities. Offered Tdap, flu s hots, and of course, she knows COVID immunizations are safe. She is going to be bottle-feeding. Re quests no analgesics on dismissal. Final Diagnoses: Term intrauterine 38 weeks, vaginal delivery, mild uterine hypertonus. SAVANNAHC/MODL Voice ID: [id number] Report ID: [id number]
== END 2021-02-21 19:41 | disposition home health service (06) | DRG 806 ==
LOC: L&D 12:50 → 2ND-WC 15:28
PROVIDERS: ADMIT Specialist; ATTEND Specialist
PROC: 10907ZC Drainage of Amniotic Fluid, Therapeutic from Products of Conception, Via Natural or Artificial Opening (ICD-10-PCS; principal; 2021-02-20)
PROC: 10E0XZZ Delivery of Products of Conception, External Approach (ICD-10-PCS; 2021-02-20)
PROC: 0KQM0ZZ Repair Perineum Muscle, Open Approach (ICD-10-PCS; 2021-02-20)
DX: O70.1 Second degree perineal laceration during delivery (principal); O98.32 Other infections with a predominantly sexual mode of transmission complicating childbirth; Z37.0 Single live birth; O62.2 Other uterine inertia; A60.09 Herpesviral infection of other urogenital tract; Z3A.38 38 weeks gestation of pregnancy; Z20.822 Contact with and (suspected) exposure to COVID-19; Z23 Encounter for immunization
CPT/HCPCS: 36415; 81003; 81015; 85014; 85018; 85025; 86592; 86901; 87086; 87088; 87340; 90471; 90715; 99218; J0595; J2210; J2550; J2590; U0003